=== PATIENT | female | born 1970 | race Caucasian/White ===

== ENCOUNTER 2021-03-02 02:38 | Emergency (ER) | payer OTHER ==
[~2021-03-02 02:38] MED LIST: ASPIRIN EC81 MG PO; BREO ELLIPTA 11 EACH INH; PROTONIX40 MG PO; SYNTHROID50 MCG PO; VENTOLIN HFA 66.7 GM INH
[2021-03-02] MEDS ORDERED: DOXYCYCLINE HY100 M2 PO (04:04)
[2021-03-02] MEDS ORDERED: BACTROBAN OINT22 GM EXT (04:04)
== END 2021-03-02 04:06 | disposition home or self-care (01) ==
LOC: ER1 02:38
DX: S30.861A Insect bite (nonvenomous) of abdominal wall, initial encounter (principal); K21.9 Gastro-esophageal reflux disease without esophagitis; J45.909 Unspecified asthma, uncomplicated; Z88.1 Allergy status to other antibiotic agents; Z88.2 Allergy status to sulfonamides; F17.210 Nicotine dependence, cigarettes, uncomplicated; W57.XXXA Bitten or stung by nonvenomous insect and other nonvenomous arthropods, initial encounter
CPT/HCPCS: 99281

== ENCOUNTER 2021-05-13 20:05 | Emergency (ER) | payer OTHER ==
[~2021-05-13 20:05] MED LIST changes: +BACTROBAN OINT22 GM EXT; +DOXYCYCLINE HY100 M2 PO
[2021-05-14] MEDS ORDERED: AUGMENTIN 875-1 EACH PO (00:26)
[2021-05-14] MEDS ORDERED: FLAGYL500 MG PO (00:29)
== END 2021-05-13 20:15 | disposition left against medical advice (07) ==
LOC: ER1 20:05
DX: Z53.21 Procedure and treatment not carried out due to patient leaving prior to being seen by health care provider (principal)

== ENCOUNTER 2021-05-13 21:56 | Emergency (ER) | payer OTHER ==
[2021-05-14] MEDS ORDERED: AUGMENTIN 875-1 EACH PO (00:26)
[2021-05-14] MEDS ORDERED: FLAGYL500 MG PO (00:29)
== END 2021-05-14 01:06 | disposition home or self-care (01) ==
LOC: ER1 21:56
DX: S51.812A Laceration without foreign body of left forearm, initial encounter (principal); J45.909 Unspecified asthma, uncomplicated; Z23 Encounter for immunization; Z88.2 Allergy status to sulfonamides; W54.0XXA Bitten by dog, initial encounter
CPT/HCPCS: 12002; 90714; 99283